=== PATIENT | female | born 1950 | race Hispanic/Latino ===

== ENCOUNTER 2022-12-02 11:00 | Emergency (ER) | payer MEDICARE ==
[~2022-12-02] VITALS: Ht 162.6 cm; Wt 87.3 kg
[2022-12-02] MEDS ORDERED: NS 500 ML IV ONE (11:20)
[2022-12-02] MEDS ORDERED: LIDOCAINE 5% (LIDODERM) PATCH TD ONE (11:20)
[2022-12-02] MEDS ORDERED: GLIP10TA PO (11:21)
[2022-12-02] MEDS ORDERED: LISI20TA33 PO (11:21)
[2022-12-02] MEDS ORDERED: FAMO20TA PO (11:22)
[2022-12-02] MEDS ORDERED: METO37.5 PO (11:23)
[2022-12-02] MEDS ORDERED: TRUL0.5I SC (11:23)
[2022-12-02 11:55] LABS: BASO # 0.1 10^3/uL (0.0-0.2); BASO % 0.7 % (0.0-1.0); EOS # 0.1 10^3/uL (0.0-0.5); HEMATOCRIT 38.1 % (36.0-47.0); HEMOGLOBIN 12.7 g/dl (12.0-15.5); LYMPH % 28.2 % (24.0-44.0); MEAN CORPUSCULAR HEMOGLOBIN 29.7 pg (27.0-33.0); MEAN CORPUSCULAR HGB CONC 33.3 g/dl (32.0-36.5); MEAN CORPUSCULAR VOLUME 89.2 fl (80.0-96.0); MONO # 0.6 10^3/uL (0.0-0.8); NEUTROPHILS # 4.3 10^3/uL (1.5-8.5); NEUTROPHILS % 60.8 % (36.0-66.0); PLATELET COUNT, AUTOMATED 173 10^3/uL (150-450); RED BLOOD COUNT 4.27 10^6/uL (4.00-5.40)
[2022-12-02] MEDS ORDERED: KETOROLAC 30 MG/ML 1ML VIAL IV ONE (12:10)
[2022-12-02] MEDS ORDERED: ACETAMINOPHEN TAB 650MG DOSE (2X325MG) PO ONE (12:10)
[2022-12-02] MEDS ORDERED: METH-1164 PO (13:43)
[2022-12-02] MEDS ORDERED: NAPR-837 PO (13:43)
[2022-12-02] MEDS ORDERED: ASPE4PAD TOP (13:43)
[2022-12-02 14:04] VITALS: BP 153/70; TEMP 98.2; O2SAT 97
== END 2022-12-02 14:05 | disposition home or self-care (01) ==
LOC: M ED 11:00 → EDBD 11:00 → M ED 14:05
DX: M54.31 Sciatica, right side (principal); M48.07 Spinal stenosis, lumbosacral region; M51.37 Other intervertebral disc degeneration, lumbosacral region; I10 Essential (primary) hypertension; Z79.811 Long term (current) use of aromatase inhibitors; Z79.1 Long term (current) use of non-steroidal anti-inflammatories (NSAID); Z79.899 Other long term (current) drug therapy
CPT/HCPCS: 72131; 74176; 80047; 85025; 96361; 96374; 99284; J1885